=== PATIENT | male | born 1970 | race Caucasian/White ===

== ENCOUNTER 2017-07-12 08:33 | Emergency (ER) | payer OTHER ==
[2017-07-12 08:40] VITALS: BP 132/97
--- NOTE | 2017-07-12 08:44 | ED Physician Documentation ---
PD HPI UPPER EXT INJURY - Stated complaint Stated Complaint: THUMB LAC - Chief complaint Chief Complaint: Ext Problem - History obtained from History obtained from: Patient - History of Present Illness Location: Left, Finger (thumb dorsal IP joint area.) Type of injury: Laceration (cut layer of skin with cheese grater. Has been cleaning it and ointment and was doing okay. Last night/today with redness, swelling and feeling "on fire" locally.) Where injury occurred: Home Timing - onset: How many weeks ago (on the ) Timing - details: Abrupt onset Worsened by: Moving, Palpating Associated symptoms: Swelling, Discolored (red). No: Weakness, Numbness Similar symptoms before: Has not had sx before Recently seen: Not recently seen Review of Systems Constitutional: denies: Fever, Chills Neurologic: denies: Focal weakness, Numbness PD PAST MEDICAL HISTORY - Past Medical History Past Medical History: Yes Respiratory: Asthma - Present Medications Home Medications: Ambulatory Orders Medication Instructions Recorded Confirmed Mupirocin 1 applic TP TID #15 oint...g. 07/12/17 Steroid Inhaler 07/12/17 Sulfamethox/Trimeth 800/160 1 each PO BID #14 tablet 07/12/17 [Bactrim Ds 800/160] - Allergies Allergies/Adverse Reactions: Allergies Allergy/AdvReac Type Severity Reaction Status Date / Time No Known Drug Allergies Allergy Verified 07/12/17 08:39 - Social History Does the pt smoke?: No Smoking Status: Never smoker PD ED PE NORMAL - Vitals Vital signs reviewed: Yes - General General: Alert and oriented X 3, No acute distress, Well developed/nourished - Derm Derm: Normal color, Warm and dry - Extremities Extremities: Other (Dorsal left thumb over the IP joint shows an area of partial -thickness laceration about 1 cm or less diameter round. There is surrounding mild redness and swelling. There is no purulence noted. There is some ointment locally on the wound. There is no proximal swelling or red streaking. The forearm is not tender. Movement of the thumb hurts just at the IP joint and does not hurt with hyperextension.) - Neuro Neuro: Alert and oriented X 3, No motor deficit, No sensory deficit Results - Vitals Vitals: Oxygen O2 Source Room air PD MEDICAL DECISION MAKING - ED course Complexity details: considered differential (Consider infection versus local irritation from the ointment he is using. Will swap out the ointment to mupirocin for help of both of those causes. Add oral antibiotics in case of infection.), d/w patient Departure - Departure Disposition: 01 Home, Self Care Clinical Impression: Open wound of finger, infected Qualifiers: Encounter type: initial encounter Qualified Code(s): S61.209A - Unspecified open wound of unspecified finger without damage to nail, initial encounter Condition: Stable Record reviewed to determine appropriate education?: Yes Prescriptions: Mupirocin 1 applic TP TID #15 oint...g. Sulfamethox/Trimeth 800/160 [Bactrim Ds 800/160] 1 each PO BID #14 tablet Comments: The wounds like this will get red and swollen most commonly because of infection. Sometimes there will be a local irritation from the antibiotic ointment. To help with both of those, will change your antibiotic ointment to mupirocin which is a different type and also more active on skin germs. For concern of infection will also add oral antibiotic twice daily for 4-7 days until the thumb looks improved. The wound itself will continue to heal in should take about a week more. Discharge Date/Time: 07/12/17 09:14
== END 2017-07-12 09:14 | disposition home or self-care (01) ==
LOC: ED 08:33
DX: S61.012A Laceration without foreign body of left thumb without damage to nail, initial encounter (principal); W26.8XXA Contact with other sharp object(s), not elsewhere classified, initial encounter; Y92.009 Unspecified place in unspecified non-institutional (private) residence as the place of occurrence of the external cause; R22.9 Localized swelling, mass and lump, unspecified
CPT/HCPCS: 99283

== ENCOUNTER 2023-09-10 10:14 | Outpatient (CLI) | payer OTHER | END 2023-09-10 10:15 | disposition home or self-care (01) | LOC: NS 10:14 | PROVIDERS: ATTEND Family Medicine | DX: Z71.3 Dietary counseling and surveillance (principal); E66.9 Obesity, unspecified; Z68.34 Body mass index [BMI] 34.0-34.9, adult | CPT/HCPCS: 97802 ==